=== PATIENT | female | born 1980 | race Caucasian/White ===

== ENCOUNTER → 2023-04-09 08:21 | Outpatient (CLI) | payer OTHER, SELFPAY ==
--- NOTE | ~2023-04-09 | MR_ITS ---
EXAMINATION: MR ankle LT wo con DATE: 04/09/2023 09:01 INDICATION: Plantar fasciitis and left ankle sprain TECHNIQUE: Magnetic resonance imaging (MRI) of the left ankle was performed without intravenous contr ast. Sequences included sagittal, coronal, and axial proton-density weighted fast spin echo without a nd with fat saturation. COMPARISON: None. FINDINGS: Medial ankle ligaments: Deep and superficial deltoid ligaments as well as the spring ligament are normal. Lateral ankle ligaments: The anterior and posterior inferior tibiofibular ligaments are normal. The anterior talofibular, calc aneofibular and posterior talofibular ligaments are normal. Tendons: Achilles tendon is normal. Small amount of increased fluid signal surrounding the normal peroneus cliff suzanna and brevis tendons consistent with mild peroneal tenosynovitis. The tibialis anterior and extenso r hallucis longus and extensor digitorum longus tendons are normal. The tibialis posterior, flexor di gitorum longus and flexor hallucis longus tendons are normal. Plantar fascia: There is moderate thickening and increased signal of the central component of the plantar aponeurosis with mild edema in the underlying musculature of the abductor digiti minimi muscle. There is a small focus of marrow edema at its calcaneal origin. Findings are consistent with provided clinical histor y of plantar fasciitis. Bones/other: Bone marrow signal is otherwise normal throughout. No fracture or pathologic marrow replacing process . Joint spaces and cartilage appear normal. Lisfranc ligament complex is normal. Fluid: Physiologic amount fluid in the joint spaces. No bursitis or other abnormal fluid collections. IMPRESSION: 1. Moderate plantar fasciitis without discrete tear. 2. Mild peroneal tenosynovitis. Reviewed, dictated and finalized at location B.
== END ==
PROVIDERS: PCP Physician Assistant; Visit Provider Podiatrist Foot & Ankle Surgery
DX: M72.2 Plantar fascial fibromatosis (principal); M76.72 Peroneal tendinitis, left leg
CPT/HCPCS: 73721